=== PATIENT | male | born 1960 | race Caucasian/White ===

== ENCOUNTER 2016-06-18 10:34 | Observation (INO) ==
[2016-06-18] MEDS ORDERED: *HR* Promethazine 25 MG/ML VIAL IVP PRN (12:03)
[2016-06-18] MEDS ORDERED: Ondansetron 4 MG/2 ML VIAL IVP PRN (12:03)
[2016-06-18] MEDS ORDERED: Naloxone 0.4 MG/ML INJ IVP PRN (12:03)
[2016-06-18] MEDS ORDERED: *HR* OxyCODONE Immed Rel 5 MG TABLET PO PRN (12:03)
[2016-06-18] MEDS ORDERED: Acetaminophen 325 MG TABLET PO PRN (12:03)
--- NOTE | 2016-06-18 12:09 | Urology History & Physical ---
Date of Encounter: 06/18/16 Time of Encounter: 12:06 Assessment and Plan (1) Calculus of kidney Current Visit: No Status: Acute 56-year-old man with a history of a left mid to proximal ureteral stone. This is causing hydronephrosis. He wishes to be admitted for pain control. We will continue him on some IV pain medication as needed. He is interested in having his stone treated. If the stone is still present tomorrow and he is still having pain, we will consider a left shockwave lithotripsy with possible left ureteral stent placement. He was informed of the risks of the surgery which include but are not limited to bleeding, infection, injury to other structures, need for further procedures, Steinstrasse, stent irritation, and incomplete treatment. He is willing to proceed. I will obtain a KUB today. I had some trouble seeing the stone on the shell maker lockstitch from his CT scan. If the stone is not well visible on KUB, we may need to convert his case over to a left ureteroscopy, laser lithotripsy, and stent placement. Dr. 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 He is aware the patient and the case. He will perform the surgery and discuss further with the patient later today or early tomorrow. History of Present Illness Chief complaint: Left flank pain HPI: Mr. Hernandez is a 56 year old male who presents with a history of left flank pain. The pain has been going on for a couple weeks, but got more severe yesterday. He came to the emergency room and a CT scan was performed. This showed an approximately 5.5mm stone in the left proximal ureter just above the pelvis. In addition there is a 1 cm right renal stone. The pain is sharp and radiates to the left groin. He had some nausea associated with it. The pain was quite severe. He mentions today that his mother, Kelsey, is a patient of mine who I do know well. Past Med Surg Social Fam HX - Past Medical History Medical history: other Psychiatric history: no psych history - Social History Smoking Status: Never smoker Smokeless Tobacco Status: No Alcohol use: none Drug use: none - Family History Father Hx Family Genitourinary Disorders: No Medications and Allergies Ciprofloxacin HCl [Cipro] 500 mg PO BID 06/18/16 [History] Diphenoxylate/Atropine [Lomotil 2.5 mg/0.025 mg] 1 each PO QID PRN 06/18/16 [ History] Allergies No Known Allergies Allergy (Verified 06/18/16 11:24) Review of Systems - Constitutional no chills, no fever(s) - EENT Nose, mouth and throat: no dizziness - Cardiovascular no chest pain - Respiratory no dyspnea - Gastrointestinal no nausea, no vomiting - Genitourinary flank pain, no hematuria - Musculoskeletal no back pain - Integumentary no erythema, no rash - Neurological no weakness - Psychiatric no suicidal ideation - Hematologic/Lymphatic no easy bleeding - Allergic/Immunologic no wheezing Exam Initial Vital Signs Temp Pulse Resp BP Pulse Ox 97.7 F 56 18 147/82 100 06/18/16 11:08 06/18/16 11:08 06/18/16 11:08 06/18/16 11:08 06/18/16 11:08 - General physical appearance Present: well developed, well nourished, no distress - Eyes Absent: icteric - ENT Present: normal nares - Neck Present: trachea midline - Respiratory Present: normal respiratory effort - Cardiovascular Cardiovascular exam IM: RRR - Abdomen Abdomen: Present: soft Urology Results - Labs All other labs normal. - Imaging CT scan - abdomen: report reviewed, image reviewed CT scan - pelvis: report reviewed, image reviewed
[2016-06-18] MEDS: *HR* HYDROmorphone (PF) 1 MG/ML SYRINGE IVP PRN ×3 (12:16→19:07)
--- NOTE | 2016-06-18 19:19 | Anesthesia Evaluation PreOp ---
Date of Encounter: 06/18/16 Time of Encounter: 19:16 - Past History Planned Operation: l eswl, poss L RP with stent Cardiac History: Denies any Significant Hx Pulmonary History: Snore MA[employer]GER [employer] History: Denies Any Significant HX Other Medical History: Renal (stones) Anesthesia History: No Prior Anesthetic Complications, Past Anesthesia Alcohol Use: occasionally Drug use: none Medications and Allergies Ciprofloxacin HCl [Cipro] 500 mg PO BID 06/18/16 [History] Diphenoxylate/Atropine [Lomotil 2.5 mg/0.025 mg] 1 each PO QID PRN 06/18/16 [ History] Allergies No Known Allergies Allergy (Verified 06/18/16 11:24) - Meds/Allergy Pre-op Review Medications Reviewed: Yes Allergies Reviewed: Yes Beta Blockers on Current Med List: No Anesthesia Results - Labs Laboratory Tests 06/18/16 06/18/16 04:40 04:40 Hgb 16.2 Hct 47.3 Plt Count 271 Sodium 140 Potassium 4.2 Creatinine 1.47 H Anesthesia Exam Height: 1.7 Weight: 87 NPO (# of Hours): >8 - HEENT Pupil (Motor): Pupils equal, EOMI Mallampati: II Teeth: Normal Oral Opening: Greater than 3 - [employer] LOC: Oriented [employer] Motor: Normal RUE, Normal LUE, Normal RLE, Normal LLE, Normal Face [employer] Sensory: Normal: RUE, LUE, RLE, LLE, Face - Cardiac Rhythm: Regular Murmur: None - Pulmonary Breath Sounds: bilateral Clear Respiratory Effort: Symmetrical Anesthesia Assess/Plan ASA Score: 2 Modified Ovett Scale for Level of Consciousness: Cooperative, oriented, and tranquil Anesthetic Plan: General Monitoring Plan: Standard Monitors Recovery Plan: PACU
[2016-06-19] MEDS: *HR* HYDROmorphone (PF) 1 MG/ML SYRINGE IVP PRN ×3 (03:45→11:34)
[2016-06-19 05:53] LABS: Basophils # 0.1 K/mcL (0.0-0.2); Basophils % 0.6 %; Eosinophils # 0.2 K/mcL (0.0-0.6); Eosinophils % 2.1 %; Hematocrit 40.4 % (37.5-50.1); Immature Granulocytes % 0.4 % (0-4); Lymphocytes # 1.6 K/mcL (0.6-4.6); Lymphocytes % 16.7 %; Mean Corpuscular HGB Conc 34.7 g/dL (31.6-35.5); Mean Corpuscular Hemoglobin 30.1 pg (28.0-33.3); Mean Corpuscular Volume 86.9 fL (83.0-100.0); Mean Platelet Volume 9.3 fL (9.4-12.4); Monocytes # 1.5 K/mcL (0.0-1.3); Monocytes % 15.8 %; Neutrophils # 6.1 K/mcL (1.6-8.9); Platelet Count 217 K/mcL (140-400); Red Blood Count 4.65 M/mcL (4.19-5.50); Red Cell Distribution Width 12.8 % (11.5-14.5); Segmented Neutrophils % 64.4 %
[2016-06-19 06:46] LABS: BUN/Creatinine Ratio 12 (6-26); Blood Urea Nitrogen 13 mg/dL (8-26); Carbon Dioxide 25 mEq/L (19-29); Chloride 108 mEq/L (98-109); Glucose 104 mg/dL (70-99); Potassium 4.1 mEq/L (3.5-4.5); Sodium 139 mEq/L (136-145); eGFR For African Americans > 60 (> 60); eGFR For Non-African Americans > 60 (> 60)
[2016-06-19 06:47] LABS: Calcium 7.9 mg/dL (8.6-10.8); Osmolality,Calculated 288 (280-300)
--- NOTE | 2016-06-19 10:29 | Urology Progress Note ---
Date of Encounter: 06/19/16 Time of Encounter: 10:28 - Assessment and Plan (1) Calculus of kidney Current Visit: No Status: Acute Assessment and plan: Will check EKG today. Plan for left shockwave lithotripsy and left ureteral stent placement. All risks informed. He is willing to proceed. Progress Note Narrative: He is having some pain this morning. He feels cold. Vital signs are normal. BP and HR are okay. EKG being obtained. He just received some pain medication. Objective Initial Vital Signs Temp Pulse Resp BP Pulse Ox 97.7 F 56 18 147/82 100 06/18/16 11:08 06/18/16 11:08 06/18/16 11:08 06/18/16 11:08 06/18/16 11:08 - General physical appearance Present: well developed, moderate distress - Respiratory Present: normal expansion - Abdomen Present: soft - Labs 06/19/16 05:31 06/19/16 05:31 Diabetes panel 06/19/16 Range/Units 05:31 Sodium 139 (136-145) mEq/L Potassium 4.1 (3.5-4.5) mEq/L Chloride 108 (98-109) mEq/L Carbon Dioxide 25 (19-29) mEq/L BUN 13 (8-26) mg/dL Creatinine 1.05 (0.72-1.25) mg/dL Glucose 104 H (70-99) mg/dL Calcium 7.9 L D (8.6-10.8) mg/dL Calcium panel 06/19/16 Range/Units 05:31 Calcium 7.9 L D (8.6-10.8) mg/dL Pituitary panel 06/19/16 Range/Units 05:31 Sodium 139 (136-145) mEq/L Potassium 4.1 (3.5-4.5) mEq/L Chloride 108 (98-109) mEq/L Carbon Dioxide 25 (19-29) mEq/L BUN 13 (8-26) mg/dL Creatinine 1.05 (0.72-1.25) mg/dL Glucose 104 H (70-99) mg/dL Calcium 7.9 L D (8.6-10.8) mg/dL Adrenal panel 06/19/16 Range/Units 05:31 Sodium 139 (136-145) mEq/L Potassium 4.1 (3.5-4.5) mEq/L Chloride 108 (98-109) mEq/L Carbon Dioxide 25 (19-29) mEq/L BUN 13 (8-26) mg/dL Creatinine 1.05 (0.72-1.25) mg/dL Glucose 104 H (70-99) mg/dL Calcium 7.9 L D (8.6-10.8) mg/dL - VTE Documentation of Mechanical Device: Intermittent pneumatic compression device Consult Discharge Plan - Plan Referrals: NO,PCP [Primary Care Provider] -
[2016-06-19] MEDS ORDERED: *HR* HYDROmorphone (PF) 1 MG/ML SYRINGE IVP PRN ×2 (11:58→15:35)
[2016-06-19] MEDS ORDERED: *HR* HYDROmorphone (PF) 1 MG/ML SYRINGE IVP ONE (11:58)
[2016-06-19] MEDS ORDERED: Levofloxacin 500 MG/100 ML 500 MG/100 ML BAG IVPB SCH ×2 (11:58→15:00)
[2016-06-19] MEDS ORDERED: *HR* Midazolam HCl 2 MG/2 ML VIAL ONE (12:58)
[2016-06-19] MEDS ORDERED: *HR* HYDROmorphone 2 MG/ML SYRINGE ONE (12:58)
[2016-06-19] MEDS ORDERED: *HR* Propofol 200 MG/20 ML VIAL IVP ONE (12:59)
[2016-06-19] MEDS ORDERED: Ondansetron 4 MG/2 ML VIAL ONE (13:00)
[2016-06-19] MEDS ORDERED: Lidocaine -MPF 2% 2 ML VIAL ONE (13:00)
[2016-06-19] MEDS ORDERED: Dexamethasone 4 MG/ML VIAL ONE (13:00)
--- NOTE | 2016-06-19 14:38 | Operative Note ---
Date of procedure: 06/19/16 Pre-op diagnosis: Left ureteral stone Post-op diagnosis: same Procedure: Cystoscopy, left renal stent placement. Left shockwave lithotripsy. Implants: 4.8 Bahamian x 26cm JJ stent. Complications: none. Anesthesia: OLIVERA Surgeon: Kaleb Vela Estimated blood loss (cc): 1 Specimen: none Condition: stable Disposition: PACU Procedure in Detail: Indications: Yves is a 56-year-old man has a history of left flank pain. A CT scan showed a stone within the left proximal ureter. This was seen on KUB. He elected to undergo a left shockwave lithotripsy along with a cystoscopy and left ureteral stent placement. He is aware of the risks of the procedure including but not limited to bleeding, infection, injury to other structures, retained stone fragments, incomplete treatment, and the risk of anesthesia. He is willing to proceed. Procedure in detail: After informed consent was obtained the patient was brought back to the operating room and placed in the supine position. A timeout was performed. General anesthesia was then administered and a laryngeal mask airway was then placed. His genitalia were then prepped and draped in usual sterile fashion. Flexible cystoscopy was performed. The anterior urethra was unremarkable. The prostate showed trilobar hyperplasia. Upon entering the bladder was bladder tumor. The ureteral orifices were in the normal orthotopic position. The left ureter orifice was cannulated with the zip wire and this was brought past the stone into the kidney under fluoroscopic guidance. A 4.8 Bahamian by 26 cm double-J stent was then placed with good curl seen in the kidney and the bladder. A knot was tied in the stent string and the excess string was cut away. The stent string then migrated into the urethra. His stone was then targeted in the X, Y, and Z planes. Lithotripsy was initiated. Our peak power was slowly ramped up to 6. Intermittent fluoroscopic images were obtained throughout the procedure to monitor for stone fragmentation. A total of 3000 shocks were administered. The rate was 80 shocks per minute. At the end of the case stone appeared to fragment well. Once the procedure was completed, he was awakened from anesthesia and brought to the recovery room in good condition.
--- NOTE | 2016-06-19 14:40 | Discharge Summary ---
Date of Encounter: 06/19/16 Time of Encounter: 14:38 - Discharge Diagnosis (1) Calculus of kidney Priority: Primary Status: Acute - Discharge Medications Prescriptions: OxyCODONE Immed Rel [Roxicodone 5 MG] 5 mg PO Q4HR PRN #25 tablet PRN Reason: moderate pain Ketorolac [Toradol] 10 mg PO Q6HR #20 tablet Docusate [Colace] 100 mg PO BID #60 capsule Home Medications: Ciprofloxacin HCl [Cipro] 500 mg PO BID 06/18/16 [History] Diphenoxylate/Atropine [Lomotil 2.5 mg/0.025 mg] 1 each PO QID PRN 06/18/16 [ History] Docusate [Colace] 100 mg PO BID #60 capsule 06/19/16 [Rx] Ketorolac [Toradol] 10 mg PO Q6HR #20 tablet 06/19/16 [Rx] OxyCODONE Immed Rel [Roxicodone 5 MG] 5 mg PO Q4HR PRN #25 tablet 06/19/16 [Rx] Allergies/Adverse Reactions: Allergies No Known Allergies Allergy (Verified 06/18/16 11:24) Labs on day of discharge: Labs from last 24 hours 06/19/16 06/19/16 05:31 05:31 WBC 9.5 RBC 4.65 Hgb 14.0 D Hct 40.4 MCV 86.9 MCH 30.1 MCHC 34.7 RDW 12.8 Plt Count 217 MPV 9.3 L Immature Gran % 0.4 Seg Neutrophils % 64.4 Lymphocytes % 16.7 Monocytes % 15.8 Eosinophils % 2.1 Basophils % 0.6 Neutrophils # 6.1 Lymphocytes # 1.6 Monocytes # 1.5 H Eosinophils # 0.2 Basophils # 0.1 Sodium 139 Potassium 4.1 Chloride 108 Carbon Dioxide 25 BUN 13 Creatinine 1.05 Est GFR ( Amer) > 60 Est GFR (Non-Af Amer) > 60 BUN/Creatinine Ratio 12 Glucose 104 H Calculated Osmolality 288 Calcium 7.9 L D - Impressions ITS Impressions KUB X-Ray 06/18/16 12:05 IMPRESSION: Left proximal ureteral stone and right renal calculus are noted as detailed. D/ / Luis Marc MD / Luis Marc MD Interpreting Provider: Luis Marc MD Date of admission: 06/18/16 10:38 Primary care physician: PCP NO Discharging clinician: Kaleb Vela Anticipated date of discharge: 06/19/16 - Patient Status Disposition: Home, Self-Care Condition: Good Functional capacity at discharge: independent ambulation Overall status at discharge: patient is progressing back to baseline - Discharge Instructions Follow Up With: Kaleb Vela MD [Partnered Physician] - Additional Instructions: 1. The patient can follow up in 1 week for a cystoscopy and stent removal. He should have a KUB prior. 2. He should expect to feel flank pain with voiding. 3. The patient should call for any fevers, chills, nausea, emesis, or uncontrolled pain. 4. Please provide a work excuse if necessary for up to 1 week off. - Diet and Activity Activity: increase activity as tolerated Diet: advance to your usual diet - Hospital Course Hospital course: Mr. Hernandez is a 56 year old male who had a left proximal ureteral stone. He was admitted on June 18, 2016 for pain control. His pain was still severe on June 19, 2016. He then underwent a left ureteral stent placement with a left shock wave lithotripsy on June 19, 2016. After the procedure, his pain was improved. He was then discharged home in good condition. - Time Spent with Patient Total time spent providing and/or coordinating discharge services: Less than 30 minutes Exam Initial Vital Signs Temp Pulse Resp BP Pulse Ox 97.7 F 56 18 147/82 100 06/18/16 11:08 06/18/16 11:08 06/18/16 11:08 06/18/16 11:08 06/18/16 11:08 - General physical appearance Present: well developed, well nourished, no distress - Eyes Absent: icteric - ENT Present: normal nares - Neck Present: trachea midline - Respiratory Present: normal respiratory effort - Cardiovascular Cardiovascular exam IM: RRR - VTE Documentation of Mechanical Device: Intermittent pneumatic compression device
--- NOTE | 2016-06-19 15:05 | Anesthesia Evaluation Post Op ---
Date of Encounter: 06/19/16 Time of Encounter: 15:05 - Vital Signs Vital Signs: Vital Signs/O2 Sat, Most Current Temp Pulse Resp BP Pulse Ox 97.8 F 91 18 120/76 94 L 06/19/16 14:36 06/19/16 14:56 06/19/16 14:56 06/19/16 14:56 06/19/16 14:56 - Lungs Lungs: Clear Ascult./Percussion - Airway Airway: Non-obstructed - Cardiovascular Regular Rate - Mental Status Mental Status: Alert & Oriented, Answers Appropriately - Pain Pain Scale: 0 Pain Scale used: Numeric (1 - 10) - Nausea Vomiting Nausea Vomiting: Not Present - Hydration Hydration: Ice chips, Has not voided - Discharge PostOp Status: Transfer Patient to floor
[2016-06-19] MEDS ORDERED: Ondansetron 4 MG/2 ML VIAL IVP PRN (15:35)
[2016-06-19] MEDS ORDERED: Ketorolac 30 MG/ML VIAL IVP PRN ×2 (15:35→16:06)
[2016-06-19] MEDS ORDERED: Naloxone 0.4 MG/ML INJ IVP PRN (15:35)
[2016-06-19] MEDS ORDERED: Acetaminophen 325 MG TABLET PO PRN (15:35)
[2016-06-19] MEDS ORDERED: *HR* OxyCODONE Immed Rel 5 MG TABLET PO PRN (15:35)
[2016-06-19] MEDS ORDERED: *HR* Promethazine 25 MG/ML VIAL IVP PRN (15:35)
[2016-06-19 15:57] VITALS: BP 112/70
--- NOTE | 2016-06-21 12:30 | Electrocardiograph Report ---
[address] [place], [place] [address] Test Date: 2016-06-19 Pat Name: Yves Hernandez Department: 114 Room: [facility] Gender: M Signal Timer: : 1960 Requested By: Kaleb Vela Order Number: [id number] Reading MD: Gloria Prescott Measurements Intervals [place] Rate: 73 P: 24 [place]: 149 QRS: 33 QRSD: 101 T: 31 QT: 370 QTc: 396 Interpretive Statements SINUS RHYTHM Electronically Signed On 06-21-2016 12:28:50 EDT by Gloria Prescott
== END 2016-06-19 18:40 | disposition home or self-care (01) ==
LOC: 3NENU
PROVIDERS: ADMIT Urology; ATTEND Urology
PROC: UROLITH (2016-06-19 17:30)